=== PATIENT | male | born 1980 | race Caucasian/White ===

== ENCOUNTER 2017-12-14 03:28 | Inpatient (IN) | payer MEDICAID ==
[2017-12-14] MEDS: ONDANSETRON 4 MG INJ IV ×2 (04:28→10:36)
[2017-12-14] MEDS: HYDROmorphONE 0.5 MG/0.5 ML SYG IV ×8 (04:29→22:54)
[2017-12-14 04:47] LABS: URINE PH (Dip) POC 6.5 (5.0-8.5)
[2017-12-14 04:47] LABS: URINE BLOOD (Dip) POC Negative (NEGATIVE); URINE KETONES (Dip) POC Negative (NEGATIVE); URINE LEUKOCYTE EST (Dip) POC Negative (NEGATIVE); URINE NITRITE (Dip) POC Negative (NEGATIVE); URINE TOTAL PROTEIN POC Negative (NEGATIVE)
[2017-12-14 05:02] LABS: ADD MAN DIFF? NO
[2017-12-14 05:07] LABS: WHITE BLOOD COUNT 5.4 10^3/ul (4.8-10.8)
[2017-12-14 05:07] LABS: BASOPHILS % 0.2 % (0.0-2.0); HEMATOCRIT 35.8 % (42.0-52.0); HEMOGLOBIN 11.5 g/dl (14.0-18.0); LYMPHOCYTES # 0.8 10^3/ul (0.8-2.9); LYMPHOCYTES % 14.9 % (15.0-51.0); MEAN CORPUSCULAR HEMOGLOBIN 27.8 pg (29.0-33.0); MEAN CORPUSCULAR HGB CONC 32.1 g/dl (32.0-37.0); MEAN CORPUSCULAR VOLUME 86.5 fl (82.0-101.0); MEAN PLATELET VOLUME 10.3 fl (7.4-10.4); MONOCYTE # 0.1 10^3/ul (0.3-0.9); MONOCYTES % 2.4 % (0.0-11.0); NEUTROPHIL # 4.4 10^3/ul (1.6-7.5); NEUTROPHILS % 81.4 % (39.0-77.0); PLATELET COUNT 305 10^3/UL (140-415); RED BLOOD COUNT 4.14 10^6/ul (4.70-6.10); RED CELL DISTRIBUTION WIDTH 16.9 % (11.5-14.5)
[2017-12-14 05:17] LABS: ADD UMIC NO; UR ASCORBIC ACID NEGATIVE (NEGATIVE); UR BILIRUBIN (Dip) NEGATIVE (NEGATIVE); UR BLOOD (Dip) NEGATIVE (NEGATIVE); UR CLARITY CLEAR (CLEAR); UR COLOR COLORLESS (YELLOW); UR GLUCOSE (Dip) 2+ mg/dL (NEGATIVE); UR KETONES (Dip) NEGATIVE (NEGATIVE); UR LEUKOCYTE ESTERASE (Dip) NEGATIVE Leu/ul (NEGATIVE); UR NITRITE (Dip) NEGATIVE (NEGATIVE); UR SPECIFIC GRAVITY (Dip) 1.005 (1.003-1.030); UR TOTAL PROTEIN (Dip) NEGATIVE (NEGATIVE); UR UROBILINOGEN (Dip) NEGATIVE (NEGATIVE)
[2017-12-14] MEDS ORDERED: LORAZEPAM 2 MG INJ (05:17)
[2017-12-14] MEDS: LORAZEPAM 2 MG INJ IV ×6 (05:21→22:51)
[2017-12-14 05:25] LABS: ALANINE AMINOTRANSFERASE 22 IU/L (13-69); ALBUMIN 4.3 g/dl (3.3-4.9); ALBUMIN/GLOBULIN RATIO 1.34; ALKALINE PHOSPHATASE 71 IU/L (42-121); ANION GAP 18 (8-16); ASPARTATE AMINO TRANSFERASE 26 IU/L (15-46); BILIRUBIN,INDIRECT 0.1 mg/dl (0-1.1); BILIRUBIN,TOTAL 0.1 mg/dl (0.2-1.3); BLOOD UREA NITROGEN 16 mg/dl (7-20); CALCIUM 9.6 mg/dl (8.4-10.2); CARBON DIOXIDE 25 mmol/L (21-31); CHLORIDE 107 mmol/L (97-110); CREATININE 0.68 mg/dl (0.61-1.24); ETHANOL < 10.0 mg/dl; GLUCOSE 162 mg/dl (70-220); POTASSIUM 4.5 mmol/L (3.5-5.1); SODIUM 145 mmol/L (135-144); TOTAL PROTEIN 7.5 g/dl (6.1-8.1)
[2017-12-14 05:30] LABS: LACTIC ACID 3.6 mmol/L (0.5-2.0)
[2017-12-14 05:36] LABS: OPIATES Positive (NEGATIVE)
[2017-12-14 05:38] LABS: AMPHETAMINE/METHAMPHETAMINE Negative (NEGATIVE); BARBITURATES Negative (NEGATIVE); BENZODIAZEPINES Positive (NEGATIVE); CANNABINOIDS Negative (NEGATIVE); COCAINE Negative (NEGATIVE); INR 0.85; PARTIAL THROMBOPLASTIN TIME 25.3 Sec (25.0-35.0); PROTIME 11.7 Sec (11.9-14.9); PT RATIO 0.9; TROPONIN-I < 0.012 ng/ml (0.00-0.12)
[2017-12-14] MEDS: PIPER-TAZO 3.375 GM IV (PMX) 100 ML IVPB ×3 (06:01→22:27)
[2017-12-14] MEDS: SOD CHLORIDE 0.9% IV (06:01)
[2017-12-14] MEDS: DIPHENHYDRAMINE 50 MG INJ IV ×3 (06:42→18:43)
[2017-12-14] MEDS: VANCOMYCIN 1 GM (PMX) 250 ML IVPB (06:52)
[2017-12-14 07:50] LABS: LACTIC ACID 1.6 mmol/L (0.5-2.0)
[2017-12-14 09:51] LABS: LACTIC ACID 2.1 mmol/L (0.5-2.0)
[2017-12-14] MEDS ORDERED: morphine 2 MG INJ (10:27)
[2017-12-14] MEDS ORDERED: morphine 2 MG INJ IV (10:30)
[2017-12-14] MEDS: SOD CHLORIDE 0.9% 1,000 ML IV (12:52)
[2017-12-14] MEDS: PANTOPRAZOLE 40 MG INJ IV ×2 (12:52→18:08)
[2017-12-14] MEDS ORDERED: ACETAMINOPHEN 325 MG TAB PO (13:00)
[2017-12-14] MEDS ORDERED: AL HYDROX/MG HYDROX/SIMETH 30 ML CUP PO (13:00)
[2017-12-14] MEDS ORDERED: ACETAMINOPHEN 650 MG SUPP PR (13:00)
[2017-12-14] MEDS ORDERED: NACL 0.9% 3 ML SYG IV (13:00)
[2017-12-15] MEDS: DIPHENHYDRAMINE 50 MG INJ IV ×4 (00:36→18:25)
[2017-12-15] MEDS: SOD CHLORIDE 0.9% 1,000 ML IV ×3 (00:36→13:51)
[2017-12-15] MEDS: HYDROmorphONE 0.5 MG/0.5 ML SYG IV ×8 (01:51→23:04)
[2017-12-15] MEDS: ONDANSETRON 4 MG INJ IV ×2 (04:16→20:09)
[2017-12-15] MEDS: LORAZEPAM 2 MG INJ IV ×5 (04:38→23:35)
[2017-12-15] MEDS: PIPER-TAZO 3.375 GM IV (PMX) 100 ML IVPB (05:20)
[2017-12-15] MEDS: PANTOPRAZOLE 40 MG INJ IV ×2 (05:20→18:08)
[2017-12-15] MEDS ORDERED: PANTOPRAZOLE 40 MG INJ IV (06:00)
[2017-12-15 10:30] LABS: ADD MAN DIFF? NO
[2017-12-15 10:33] LABS: BASOPHILS % 0.2 % (0.0-2.0); EOSINOPHILS # 0.1 10^3/ul (0.0-0.5); HEMATOCRIT 29.7 % (42.0-52.0); HEMOGLOBIN 9.2 g/dl (14.0-18.0); LYMPHOCYTES # 1.8 10^3/ul (0.8-2.9); LYMPHOCYTES % 35.8 % (15.0-51.0); MEAN CORPUSCULAR VOLUME 90.5 fl (82.0-101.0); MEAN PLATELET VOLUME 10.3 fl (7.4-10.4); MONOCYTE # 0.5 10^3/ul (0.3-0.9); MONOCYTES % 10.9 % (0.0-11.0); NEUTROPHIL # 2.5 10^3/ul (1.6-7.5); NEUTROPHILS % 51.1 % (39.0-77.0); PLATELET COUNT 219 10^3/UL (140-415); RED BLOOD COUNT 3.28 10^6/ul (4.70-6.10); RED CELL DISTRIBUTION WIDTH 17.6 % (11.5-14.5)
[2017-12-15 10:55] LABS: ALANINE AMINOTRANSFERASE 17 IU/L (13-69); ALBUMIN 3.4 g/dl (3.3-4.9); ALKALINE PHOSPHATASE 42 IU/L (42-121); ANION GAP 15 (8-16); ASPARTATE AMINO TRANSFERASE 14 IU/L (15-46); BILIRUBIN,INDIRECT 0.2 mg/dl (0-1.1); BILIRUBIN,TOTAL 0.2 mg/dl (0.2-1.3); BLOOD UREA NITROGEN 11 mg/dl (7-20); CALCIUM 8.3 mg/dl (8.4-10.2); CARBON DIOXIDE 26 mmol/L (21-31); CHLORIDE 113 mmol/L (97-110); CREATININE 0.81 mg/dl (0.61-1.24); GLUCOSE 107 mg/dl (70-220); LIPASE 27 U/L (23-300); MAGNESIUM 1.8 mg/dl (1.7-2.5); POTASSIUM 3.6 mmol/L (3.5-5.1); SODIUM 150 mmol/L (135-144)
[2017-12-15 11:08] LABS: HEMOGLOBIN A1C 5.3 % (0-5.9)
[2017-12-15 11:09] LABS: TROPONIN-I < 0.012 ng/ml (0.00-0.12)
[2017-12-15 11:53] LABS: THYROID STIMULATING HORMONE 0.826 MIU/L (0.465-4.680)
[2017-12-15] MEDS: SOD CHLORIDE 0.9% IVPB ×3 (14:00→22:05)
[2017-12-15] MEDS ORDERED: ACYCLOVIR 700 MG in SOD CHLORIDE 0.9% 100 ML IVPB (14:00)
[2017-12-15] MEDS: ACYCLOVIR IVPB ×3 (14:00→22:05)
[2017-12-15] MEDS: BISACODYL (EC) 5 MG TAB PO (16:03)
[2017-12-15] MEDS: POLYETHYLENE GLYCOL 3350 119 GM POWDER PO (18:09)
[2017-12-15] MEDS: MAGNESIUM CITRATE 300 ML BTL PO ×2 (18:16→20:03)
[2017-12-15 21:37] LABS: OCCULT BLOOD STOOL NEGATIVE (NEGATIVE)
[2017-12-16] MEDS: DIPHENHYDRAMINE 50 MG INJ IV ×5 (00:25→20:39)
[2017-12-16] MEDS: HYDROmorphONE 0.5 MG/0.5 ML SYG IV ×8 (02:02→23:50)
[2017-12-16] MEDS: PANTOPRAZOLE 40 MG INJ IV ×3 (05:03→20:39)
[2017-12-16] MEDS: SOD CHLORIDE 0.9% IVPB ×4 (05:04→21:54)
[2017-12-16] MEDS: ACYCLOVIR IVPB ×4 (05:04→21:54)
[2017-12-16] MEDS: LORAZEPAM 2 MG INJ IV ×2 (05:39→11:40)
[2017-12-16 06:22] LABS: ADD MAN DIFF? NO
[2017-12-16 06:24] LABS: BASOPHILS % 0.2 % (0.0-2.0); EOSINOPHILS # 0.1 10^3/ul (0.0-0.5); EOSINOPHILS % 1.9 % (0.0-7.0); HEMATOCRIT 30.9 % (42.0-52.0); HEMOGLOBIN 9.8 g/dl (14.0-18.0); LYMPHOCYTES # 1.7 10^3/ul (0.8-2.9); LYMPHOCYTES % 40.9 % (15.0-51.0); MEAN CORPUSCULAR HEMOGLOBIN 28.2 pg (29.0-33.0); MEAN CORPUSCULAR HGB CONC 31.7 g/dl (32.0-37.0); MEAN CORPUSCULAR VOLUME 88.8 fl (82.0-101.0); MEAN PLATELET VOLUME 10.1 fl (7.4-10.4); MONOCYTE # 0.5 10^3/ul (0.3-0.9); MONOCYTES % 12.4 % (0.0-11.0); NEUTROPHIL # 1.9 10^3/ul (1.6-7.5); NEUTROPHILS % 44.1 % (39.0-77.0); PLATELET COUNT 221 10^3/UL (140-415); RED BLOOD COUNT 3.48 10^6/ul (4.70-6.10); RED CELL DISTRIBUTION WIDTH 17.2 % (11.5-14.5)
[2017-12-16 06:24] LABS: WHITE BLOOD COUNT 4.2 10^3/ul (4.8-10.8)
[2017-12-16] MEDS ORDERED: PROPOFOL 200 MG INJ (07:00)
[2017-12-16 07:03] LABS: ALANINE AMINOTRANSFERASE 18 IU/L (13-69); ALBUMIN 3.5 g/dl (3.3-4.9); ALBUMIN/GLOBULIN RATIO 1.29; ALKALINE PHOSPHATASE 49 IU/L (42-121); ANION GAP 13 (8-16); ASPARTATE AMINO TRANSFERASE 16 IU/L (15-46); BILIRUBIN,INDIRECT 0.3 mg/dl (0-1.1); BILIRUBIN,TOTAL 0.3 mg/dl (0.2-1.3); BLOOD UREA NITROGEN 3 mg/dl (7-20); CALCIUM 8.5 mg/dl (8.4-10.2); CARBON DIOXIDE 29 mmol/L (21-31); CHLORIDE 107 mmol/L (97-110); CREATININE 0.64 mg/dl (0.61-1.24); GLUCOSE 91 mg/dl (70-220); POTASSIUM 3.6 mmol/L (3.5-5.1); SODIUM 145 mmol/L (135-144); TOTAL PROTEIN 6.2 g/dl (6.1-8.1)
[2017-12-16] MEDS: POLYETHYLENE GLYCOL 3350 119 GM POWDER PO (08:00)
[2017-12-16] MEDS: BISACODYL (EC) 5 MG TAB PO (08:08)
[2017-12-16] MEDS ORDERED: oxyCODONE 15 MG TAB PO (13:30)
[2017-12-16] MEDS: KETOCONAZOLE 2% 15 GM CR TOP ×2 (13:30→21:56)
[2017-12-16] MEDS: metroNIDAZOLE 500 MG TAB PO (13:42)
[2017-12-16] MEDS ORDERED: DIPHENHYDRAMINE 50 MG INJ IV (15:00)
[2017-12-16] MEDS: LIDOCAINE 1% (MDV) 10 ML INJ (15:03)
[2017-12-16] MEDS: oxyCODONE 5 MG TAB PO ×2 (16:09→22:53)
[2017-12-16] MEDS: VANCOMYCIN HCL 250 MG/5ML POSYG PO ×2 (17:00→20:39)
[2017-12-16 17:48] LABS: CSF RBC 0 /uL (0-0); CSF WBC 1 /cmm (0-10)
[2017-12-16] MEDS: MIDAZOLAM 1 MG/ML 2 ML INJ ×3 (17:49→19:03)
[2017-12-16] MEDS: DIPHENHYDRAMINE 50 MG INJ ×2 (17:50→19:03)
[2017-12-16] MEDS: SOD CHLORIDE 0.9% 1,000 ML IV (18:00)
[2017-12-16 18:15] LABS: GLUCOSE,CSF 48 mg/dl (50-80)
[2017-12-16 18:15] LABS: TOTAL PROTEIN,CSF 45 mg/dl (12-60)
[2017-12-16 18:58] LABS: CSF CLARITY CLEAR; CSF COLOR COLORLESS; CSF VOLUME 5.4 ml; CSF#TUBES REC'D 4
[2017-12-16 18:59] LABS: CSF#TUBE COUNT TUBE#1
[2017-12-16 19:02] LABS: CSF COLOR COLORLESS
[2017-12-16 19:02] LABS: CSF CLARITY CLEAR; CSF RBC 0 /uL (0-0); CSF VOLUME 5.4 ml; CSF#TUBE COUNT TUBE#4; CSF#TUBES REC'D 4
[2017-12-16] MEDS: FENTAnyl 50 MCG/ML VIAL (19:02)
[2017-12-16 19:04] LABS: CSF WBC 1 /cmm (0-10)
[2017-12-16] MEDS: LIDOCAINE 2% (SDV) 5 ML INJ (19:07)
[2017-12-16] MEDS: PROPOFOL 20 ML (19:07)
[2017-12-16] MEDS: LACTOBACILLUS RHAMNOSUS CAP PO (20:40)
[2017-12-16] MEDS: ALPRAZOLAM 0.5 MG TAB PO (21:51)
[2017-12-17] MEDS: DIPHENHYDRAMINE 50 MG INJ IV ×5 (02:46→20:58)
[2017-12-17] MEDS: HYDROmorphONE 0.5 MG/0.5 ML SYG IV ×7 (03:22→23:30)
[2017-12-17] MEDS: oxyCODONE 5 MG TAB PO ×4 (04:23→17:34)
[2017-12-17] MEDS: PANTOPRAZOLE 40 MG INJ IV ×2 (05:31→17:34)
[2017-12-17] MEDS: LORAZEPAM 2 MG INJ IV ×3 (05:32→18:47)
[2017-12-17] MEDS: SOD CHLORIDE 0.9% IVPB ×3 (05:32→22:11)
[2017-12-17] MEDS: ACYCLOVIR IVPB ×3 (05:32→22:11)
[2017-12-17 06:29] LABS: ADD MAN DIFF? NO
[2017-12-17 06:34] LABS: BASOPHILS % 0.3 % (0.0-2.0); EOSINOPHILS # 0.1 10^3/ul (0.0-0.5); HEMATOCRIT 34.3 % (42.0-52.0); HEMOGLOBIN 10.7 g/dl (14.0-18.0); LYMPHOCYTES # 1.2 10^3/ul (0.8-2.9); LYMPHOCYTES % 20.1 % (15.0-51.0); MEAN CORPUSCULAR HEMOGLOBIN 27.7 pg (29.0-33.0); MEAN CORPUSCULAR HGB CONC 31.2 g/dl (32.0-37.0); MEAN CORPUSCULAR VOLUME 88.9 fl (82.0-101.0); MEAN PLATELET VOLUME 10.1 fl (7.4-10.4); MONOCYTE # 0.8 10^3/ul (0.3-0.9); MONOCYTES % 12.6 % (0.0-11.0); NEUTROPHIL # 3.9 10^3/ul (1.6-7.5); NEUTROPHILS % 64.8 % (39.0-77.0); PLATELET COUNT 229 10^3/UL (140-415); RED BLOOD COUNT 3.86 10^6/ul (4.70-6.10); RED CELL DISTRIBUTION WIDTH 16.6 % (11.5-14.5)
[2017-12-17] MEDS: LACTOBACILLUS RHAMNOSUS CAP PO ×2 (08:13→20:57)
[2017-12-17] MEDS: KETOCONAZOLE 2% 15 GM CR TOP ×2 (08:14→21:01)
[2017-12-17] MEDS: VANCOMYCIN HCL 250 MG/5ML POSYG PO ×4 (08:14→20:57)
[2017-12-17] MEDS: ALPRAZOLAM 0.5 MG TAB PO ×2 (08:14→20:57)
[2017-12-17] MEDS: HYDROCORTISONE 1% 28 GM CR TOP ×2 (16:25→21:02)
[2017-12-17] MEDS: SERTRALINE 100 MG TAB PO (16:25)
[2017-12-17] MEDS: SOD CHLORIDE 0.9% 1,000 ML IV ×2 (17:13→19:50)
[2017-12-17] MEDS: BUSPIRONE 5 MG TAB PO (20:57)
[2017-12-18] MEDS: oxyCODONE 5 MG TAB PO ×5 (01:30→22:15)
[2017-12-18] MEDS: HYDROmorphONE 0.5 MG/0.5 ML SYG IV ×5 (02:36→19:51)
[2017-12-18] MEDS: DIPHENHYDRAMINE 50 MG INJ IV ×5 (03:18→21:46)
[2017-12-18] MEDS: PANTOPRAZOLE 40 MG INJ IV ×2 (05:55→17:42)
[2017-12-18] MEDS: SOD CHLORIDE 0.9% IVPB ×3 (05:55→21:45)
[2017-12-18] MEDS: ACYCLOVIR IVPB ×3 (05:55→21:45)
[2017-12-18 05:57] LABS: ADD MAN DIFF? NO
[2017-12-18 06:01] LABS: URINE DRUG SCREEN RESULT DRUG(S) DETECTED:
[2017-12-18 06:08] LABS: BASOPHILS % 0.4 % (0.0-2.0); EOSINOPHILS # 0.2 10^3/ul (0.0-0.5); EOSINOPHILS % 4.8 % (0.0-7.0); HEMATOCRIT 32.2 % (42.0-52.0); LYMPHOCYTES # 1.5 10^3/ul (0.8-2.9); LYMPHOCYTES % 32.9 % (15.0-51.0); MEAN CORPUSCULAR HEMOGLOBIN 27.7 pg (29.0-33.0); MEAN CORPUSCULAR HGB CONC 31.1 g/dl (32.0-37.0); MEAN CORPUSCULAR VOLUME 89.2 fl (82.0-101.0); MEAN PLATELET VOLUME 9.9 fl (7.4-10.4); MONOCYTE # 0.5 10^3/ul (0.3-0.9); MONOCYTES % 11.7 % (0.0-11.0); NEUTROPHIL # 2.3 10^3/ul (1.6-7.5); NEUTROPHILS % 49.8 % (39.0-77.0); PLATELET COUNT 221 10^3/UL (140-415); RED BLOOD COUNT 3.61 10^6/ul (4.70-6.10); RED CELL DISTRIBUTION WIDTH 16.8 % (11.5-14.5)
[2017-12-18 06:08] LABS: WHITE BLOOD COUNT 4.6 10^3/ul (4.8-10.8)
[2017-12-18] MEDS: VANCOMYCIN HCL 250 MG/5ML POSYG PO ×4 (09:02→21:01)
[2017-12-18] MEDS: LACTOBACILLUS RHAMNOSUS CAP PO ×2 (09:02→21:02)
[2017-12-18] MEDS: SERTRALINE 100 MG TAB PO (09:02)
[2017-12-18] MEDS: BUSPIRONE 5 MG TAB PO ×2 (09:03→21:02)
[2017-12-18] MEDS: HYDROCORTISONE 1% 28 GM CR TOP ×2 (09:06→21:03)
[2017-12-18] MEDS: KETOCONAZOLE 2% 15 GM CR TOP ×2 (09:06→21:03)
[2017-12-18] MEDS: ALPRAZOLAM 0.5 MG TAB PO ×2 (10:16→21:02)
[2017-12-18] MEDS: TAMSULOSIN (SR) 0.4 MG CAP PO ×2 (12:26→21:01)
[2017-12-18] MEDS: SOD CHLORIDE 0.9% 1,000 ML IV (18:43)
[2017-12-19] MEDS: HYDROmorphONE 0.5 MG/0.5 ML SYG IV ×2 (02:43→08:43)
[2017-12-19] MEDS: DIPHENHYDRAMINE 50 MG INJ IV ×5 (03:44→19:50)
[2017-12-19] MEDS: oxyCODONE 5 MG TAB PO ×4 (04:40→19:51)
[2017-12-19 05:30] LABS: ADD MAN DIFF? NO
[2017-12-19] MEDS: ACYCLOVIR IVPB (05:36)
[2017-12-19] MEDS: SOD CHLORIDE 0.9% IVPB (05:36)
[2017-12-19] MEDS: PANTOPRAZOLE 40 MG INJ IV ×2 (05:37→18:00)
[2017-12-19 06:26] LABS: BASOPHILS % 0.5 % (0.0-2.0); EOSINOPHILS # 0.2 10^3/ul (0.0-0.5); EOSINOPHILS % 4.9 % (0.0-7.0); HEMATOCRIT 34.1 % (42.0-52.0); HEMOGLOBIN 10.9 g/dl (14.0-18.0); LYMPHOCYTES # 1.7 10^3/ul (0.8-2.9); MEAN CORPUSCULAR HEMOGLOBIN 28.2 pg (29.0-33.0); MEAN CORPUSCULAR VOLUME 88.3 fl (82.0-101.0); MONOCYTE # 0.4 10^3/ul (0.3-0.9); NEUTROPHIL # 1.7 10^3/ul (1.6-7.5); NEUTROPHILS % 41.9 % (39.0-77.0); POSITIVE DIFF @See below; RED BLOOD COUNT 3.86 10^6/ul (4.70-6.10); RED CELL DISTRIBUTION WIDTH 16.4 % (11.5-14.5)
[2017-12-19 06:26] LABS: WHITE BLOOD COUNT 4.1 10^3/ul (4.8-10.8)
[2017-12-19 06:48] LABS: MEAN PLATELET VOLUME 12.3 fl (7.4-10.4); PLATELET COUNT 112 10^3/UL (140-415)
[2017-12-19] MEDS: LORAZEPAM 2 MG INJ IV (07:25)
[2017-12-19] MEDS: TAMSULOSIN (SR) 0.4 MG CAP PO ×2 (08:43→21:14)
[2017-12-19] MEDS: VANCOMYCIN HCL 250 MG/5ML POSYG PO ×4 (08:43→21:00)
[2017-12-19] MEDS: SERTRALINE 100 MG TAB PO (08:43)
[2017-12-19] MEDS: BUSPIRONE 5 MG TAB PO ×2 (08:44→21:14)
[2017-12-19] MEDS: LACTOBACILLUS RHAMNOSUS CAP PO ×2 (08:44→17:30)
[2017-12-19] MEDS: ALPRAZOLAM 0.5 MG TAB PO ×2 (08:44→21:13)
[2017-12-19] MEDS: KETOCONAZOLE 2% 15 GM CR TOP ×2 (08:56→09:01)
[2017-12-19] MEDS: HYDROCORTISONE 1% 28 GM CR TOP ×2 (08:56→09:01)
[2017-12-19] MEDS ORDERED: KETOROLAC 15 MG INJ IV (12:00)
[2017-12-19] MEDS: SOD CHLORIDE 0.9% 1,000 ML IV (15:43)
[2017-12-19] MEDS ORDERED: HYDROCORTISONE 1% 28 GM CR TOP (16:00)
[2017-12-19] MEDS ORDERED: KETOCONAZOLE 2% 15 GM CR TOP (16:00)
[2017-12-20] MEDS: oxyCODONE 5 MG TAB PO ×6 (00:17→22:28)
[2017-12-20] MEDS: PANTOPRAZOLE 40 MG INJ IV (04:54)
[2017-12-20] MEDS: DIPHENHYDRAMINE 50 MG INJ IV ×5 (04:54→21:27)
[2017-12-20] MEDS: SOD CHLORIDE 0.9% 1,000 ML IV ×2 (05:12→16:12)
[2017-12-20] MEDS: VANCOMYCIN HCL 250 MG/5ML POSYG PO ×4 (09:02→21:25)
[2017-12-20] MEDS: LACTOBACILLUS RHAMNOSUS CAP PO ×3 (09:08→17:48)
[2017-12-20] MEDS: TAMSULOSIN (SR) 0.4 MG CAP PO ×2 (09:09→21:27)
[2017-12-20] MEDS: BUSPIRONE 5 MG TAB PO ×2 (09:10→21:26)
[2017-12-20] MEDS: SERTRALINE 100 MG TAB PO (09:10)
[2017-12-20] MEDS: ALPRAZOLAM 0.5 MG TAB PO (10:43)
[2017-12-20] MEDS ORDERED: PHENOL 1.4% SOLN 180 ML BTL MT (11:30)
[2017-12-21] MEDS: DIPHENHYDRAMINE 50 MG INJ IV ×6 (02:01→22:25)
[2017-12-21] MEDS: oxyCODONE 5 MG TAB PO ×6 (02:35→23:42)
[2017-12-21] MEDS: SOD CHLORIDE 0.9% 1,000 ML IV ×3 (02:36→22:25)
[2017-12-21] MEDS: PANTOPRAZOLE (EC) 40 MG TAB PO (06:00)
[2017-12-21] MEDS: LACTOBACILLUS RHAMNOSUS CAP PO ×3 (09:49→17:36)
[2017-12-21] MEDS: TAMSULOSIN (SR) 0.4 MG CAP PO ×2 (09:50→22:25)
[2017-12-21] MEDS: SERTRALINE 100 MG TAB PO (09:50)
[2017-12-21] MEDS: VANCOMYCIN HCL 250 MG/5ML POSYG PO ×4 (09:50→22:23)
[2017-12-21] MEDS: BUSPIRONE 5 MG TAB PO ×2 (09:50→22:24)
[2017-12-21] MEDS: ALPRAZOLAM 0.5 MG TAB PO (16:17)
[2017-12-22] MEDS: DIPHENHYDRAMINE 50 MG INJ IV ×6 (02:23→21:03)
[2017-12-22] MEDS ORDERED: HYDROmorphONE 0.5 MG/0.5 ML SYG IV (04:05)
[2017-12-22] MEDS: HYDROmorphONE 0.5 MG/0.5 ML SYG IV (04:31)
[2017-12-22] MEDS: oxyCODONE 15 MG TAB PO ×5 (05:29→22:03)
[2017-12-22] MEDS: PANTOPRAZOLE (EC) 40 MG TAB PO (05:30)
[2017-12-22] MEDS: ALPRAZOLAM 0.5 MG TAB PO ×2 (07:28→19:48)
[2017-12-22] MEDS: LACTOBACILLUS RHAMNOSUS CAP PO ×3 (09:01→17:00)
[2017-12-22] MEDS: SOD CHLORIDE 0.9% 1,000 ML IV ×3 (09:01→19:47)
[2017-12-22] MEDS: VANCOMYCIN HCL 250 MG/5ML POSYG PO ×5 (09:02→21:06)
[2017-12-22] MEDS: SERTRALINE 100 MG TAB PO (09:02)
[2017-12-22] MEDS: BUSPIRONE 5 MG TAB PO ×3 (09:02→22:06)
[2017-12-22] MEDS: TAMSULOSIN (SR) 0.4 MG CAP PO ×3 (09:15→22:07)
[2017-12-22] MEDS ORDERED: ACET/BUTAL/CAFF TAB PO (12:30)
[2017-12-22] MEDS: ONDANSETRON 4 MG INJ IV (17:58)
[2017-12-23] MEDS: DIPHENHYDRAMINE 50 MG INJ IV ×4 (01:11→13:13)
[2017-12-23] MEDS: oxyCODONE 15 MG TAB PO ×4 (02:07→14:53)
[2017-12-23] MEDS: SOD CHLORIDE 0.9% 1,000 ML IV (05:21)
[2017-12-23] MEDS: PANTOPRAZOLE (EC) 40 MG TAB PO (06:07)
[2017-12-23] MEDS: ALPRAZOLAM 0.5 MG TAB PO (07:48)
[2017-12-23] MEDS: LACTOBACILLUS RHAMNOSUS CAP PO ×2 (07:48→11:30)
[2017-12-23] MEDS: BUSPIRONE 5 MG TAB PO (09:11)
[2017-12-23] MEDS: SERTRALINE 100 MG TAB PO (09:12)
[2017-12-23] MEDS: TAMSULOSIN (SR) 0.4 MG CAP PO (09:12)
[2017-12-23] MEDS: VANCOMYCIN HCL 250 MG/5ML POSYG PO ×2 (09:12→13:00)
== END 2017-12-23 16:00 | disposition home or self-care (01) | DRG 693 ==
LOC: E/R 03:28 → PP2 05:51
PROC: 0DB98ZX Excision of Duodenum, Via Natural or Artificial Opening Endoscopic, Diagnostic (ICD-10-PCS; principal; 2017-12-16 18:00)
PROC: 0DB68ZX Excision of Stomach, Via Natural or Artificial Opening Endoscopic, Diagnostic (ICD-10-PCS; 2017-12-16 18:00)
PROC: 0DJD8ZZ Inspection of Lower Intestinal Tract, Via Natural or Artificial Opening Endoscopic (ICD-10-PCS; 2017-12-16 18:00)
PROC: 009U3ZX Drainage of Spinal Canal, Percutaneous Approach, Diagnostic (ICD-10-PCS; 2017-12-16 18:00)
PROC: B01BYZZ Fluoroscopy of Spinal Cord using Other Contrast (ICD-10-PCS; 2017-12-16 18:00)
DX: N20.0 Calculus of kidney (principal); K29.71 Gastritis, unspecified, with bleeding; A04.72 Enterocolitis due to Clostridium difficile, not specified as recurrent; K92.0 Hematemesis; K92.1 Melena; R51 Headache; M54.2 Cervicalgia; D64.9 Anemia, unspecified; F41.9 Anxiety disorder, unspecified; F43.20 Adjustment disorder, unspecified; F43.10 Post-traumatic stress disorder, unspecified; G89.29 Other chronic pain; M54.9 Dorsalgia, unspecified
CPT/HCPCS: 36415; 70450; 70553; 71045; 74176; 76705; 80053; 80306; 80307; 81003; 82270; 82945; 83036; 83605; 83690; 83735; 84157; 84443; 84484; 85025; 85610; 85730; 86641; 86850; 86900; 86901; 87040; 87045; 87070; 87075; 87086; 87177; 87252; 87529; 88305; 89051; 93005; 93880; 96374; 96375; 96376; 99291-25